=== PATIENT | female | born 1995 | race Caucasian/White ===

== ENCOUNTER → 2016-09-14 11:44 | Outpatient (CLI) | payer MEDICAID ==
[~2016-09-14 11:44] MED LIST: HYDROCODON-ACE1 EAC7 PO; IBUPROFEN100 MG/5 M; PHENERGAN25 M1 PO; PREPLUS CA-FE1 EACH PO; PROTONIX40 MG PO
[2016-09-20 05:37] VITALS: BMI 31.7
== END | disposition home or self-care (01) ==
LOC: D.LDO 11:44
DX: Z34.03 Encounter for supervision of normal first pregnancy, third trimester (principal); Z3A.39 39 weeks gestation of pregnancy; R03.0 Elevated blood-pressure reading, without diagnosis of hypertension

== ENCOUNTER → 2016-09-17 13:25 | Outpatient (CLI) | payer MEDICAID ==
[2016-09-20 05:37] VITALS: BMI 31.7
== END | disposition home or self-care (01) ==
LOC: D.LDO 13:25
DX: O36.8130 Decreased fetal movements, third trimester, not applicable or unspecified (principal); Z3A.40 40 weeks gestation of pregnancy

== ENCOUNTER 2016-09-20 05:08 | Inpatient (IN) | payer MEDICAID ==
[~2016-09-20] VITALS: Ht 152.4 cm; Wt 73.5 kg
[2016-09-20] VITALS (10 sets, daily range): BP systolic 121–160; BP diastolic 65–89; Ht 152.4 cm; Wt 73.5 kg
[2016-09-20] MEDS ORDERED: PROTONIX40 MG PO (05:36)
[2016-09-20] MEDS ORDERED: PREPLUS CA-FE1 EACH PO (05:36)
[2016-09-20] MEDS ORDERED: PHENERGAN25 M1 PO (05:36)
[2016-09-20 05:45] LABS: HEMATOCRIT 30.6 % (36.0-48.0); HEMOGLOBIN 9.6 g/dL (12-16); MCH 27.3 pg (26.0-34.0); MCHC 31.4 g/dL (31.0-37.0); MCV 86.9 fL (80.0-100.0); MEAN PLATELET VOLUME 11.1 fL (7.4-10.4); RBC 3.52 10x6/uL (4.00-5.40); RDW 14.3 % (11.5-14.5); WBC 9.4 10x3/uL (4.8-10.8)
--- NOTE | 2016-09-20 16:19 | NUR ---
1613 VIABLE BABY GIRL DELIVERED CORD BLOOD AND GASES DONE AND SENT OUT, TO.
--- NOTE | 2016-09-20 17:09 | NUR ---
REC'D PT AA&O X 4 BACK FROM REC[facility]ERY POST PRIMARY FOR FAILURE TO DESCENT TO RM 1274. PT CURRENTLY REPORTS INCISIONAL PAIN THAT SHE RATES 6-7/10. PT HAS PIV TO RT FOREARM W/NS W/20 UNITS PITOCIN ADDED INFUSING VIA GRAVITY AT SLOW RATE. IV FLUID PLACED ON PUMP TO INFUSE AT 125ML/HR PER MD ORDERS. BREATH SOUNDS CL\=, ABD SOFT, NON-DISTENDED, BOWEL SOUNDS HYPOACTIVE IN ALL FOUR QUADRANTS. LOW TRANSVERSE INCISION W/SMALL TEFLA BANDAGE C/D/I. 2 SMALL DRAINAGE AREAS NOTED.FUNDUS FIRM,U/U, MIDLINE. SCANT LOCHIA NOTED. NO BLOOD CLOTS EXPRESSED W/MASSAGE. CURRENT PERIPAD CLEAN, NOT CHANGED AT THIS TIME. DUPONT CATH REMAINS IN PLACE W/APPROX 100ML URINE NOTED IN BAG.SCD WRAP REMAIN IN PLACE BILATERALLY. CONNECTED TO PUMP. PUMP PLUGGED IN AND FUNCTIONING.
--- NOTE | 2016-09-20 17:15 | NUR ---
FUNDUS FIRM,U/U, MIDLINE, SCANT RUBRA LOCHIA NOTED. CURRENT PERIPAD NOT CHANGED AT THIS TIME. ICE CAP TO INCISION. T/C/D TEACHING PROVIDED.
--- NOTE | 2016-09-20 17:23 | NUR ---
TORADOL 30MG SIVP GIVEN W/TEACHING. DILAUDID MIGRATORY GAME BIRD BIOLOGIST INITIATED AT THIS TIME PER MD ORDERS. MIGRATORY GAME BIRD BIOLOGIST BUTTON PROVIDED W/TEACHING. PT DECLINES TO PUSH MIGRATORY GAME BIRD BIOLOGIST BUTTON AT THIS TIME STATES "I DON'T WANT TO BE SLEEPY WHEN MY BABY COMES TO THE ROOM FOR ME TO FEED HER." MIGRATORY GAME BIRD BIOLOGIST BUTTON AT PT'S SIDE W/ENCOURAGEMENT TO USE IT PROVIDED. PT'S MOTHER AND FOB AT BEDSIDE. PT REQUESTING TO SEE HER FRANKIE. TEACHING PROVIDED.
--- NOTE | 2016-09-20 17:30 | NUR ---
PT AA&O X4. FUNDUS FIRM,U/U, MIDLINE. SCANT RUBRA LOCHIA NOTED. NO BLOOD CLOTS EXPRESSED W/MASSAGE. NO NEED TO CHANGE PERIPAD AT THIS TIME. PT RATES PAIN 6/10. STILL DECLINES TO PUSH AIR HOIST OPERATOR BUTTON. APPROX 100ML URINE EMPTIED FROM DUPONT BAG AT THIS TIME TO START Q 4HR I&O.
--- NOTE | 2016-09-20 18:02 | NUR ---
DR PHELAN TO BEDSIDE TO SPEAK WITH PT.
--- NOTE | 2016-09-20 18:05 | NUR ---
FUNDUS FIRM,U/U, MIDLINE, SCANT TO SMALL RUBRA LOCHIA NOTED. NO BLOOD CLOTS EXPRESSED W/MASSAGE. CLEAN PERIPAD PLACED AT THIS TIME. PT REPORTS LEGS ARE STILL NUMB AND UNABLE TO MOVE LE'S WITH FULL STRENGTH.
--- NOTE | 2016-09-20 18:10 | NUR ---
PT ENCOURAGED TO PUSH HER ROD FINISHER BUTTON TO HELP CONTROL HER PAIN SO THAT SHE WON'T HAVE ELEVATED BP'S FROM HER INCREASED PAIN. PT DOES SO AT THIS TIME.
--- NOTE | 2016-09-20 18:11 | NUR ---
INFANT TO ROOM VIA CRIB PER KILO MARTINES RN AT THIS TIME.
--- NOTE | 2016-09-20 18:45 | NUR ---
PT RINGS CALL LIGHT. THIS RN TO BEDSIDE. PT REQUESTING A BOTTLE TO FEED . PT REPORTS SHE CAN'T CALM ENOUGH TO GET HER TO NURSE. BOTTLE AND NIPPLE PROVIDED. SWADDLED X 2. HAT PLACED BACK ON . PLACED IN PT'S ARMS FOR PT TO FEED. PT DENIES FURTHER NEEDS AT THIS TIME.
--- NOTE | 2016-09-20 19:17 | NUR ---
SHIFT ASSESSMENT COMPLETED. VSS. FUNDUS FIRM, U2 WITH MODERATE AMT RUBRA LOCHIA TO PERIPAD, NO CLOTS PRESENT AT THIS TIME. PERIPAD AND CHUX CHANGED. BOWEL SOUNDS PRESENT AND ACTIVE IN ALL 4 QUADRANTS. DRSG CLEAN, DRY, AND INTACT WITH 2 SMALL AREAS OF DRIED DRAINAGE MARKED. INSTRUCTED PATIENT AND S/O ON S/S OF INFECTION/COMPLICATIONS TO INCISION SITE TO REPORT INCLUDING REDNESS, INCREASED PAIN, DRAINAGE, ODOR, FEVER WITH UNDERSTANDING VERBALIZED. INSTRUCTED ON USE OF INCENTIVE SPIROMETER WITH RETURN DEMONSTRATION X10 AND ALTERNATE PAIN MGMT TECHNIQUES. PATIENT VERBALIZED FEAR OF USING PRODUCTION CONTROL SPECIALIST STATING THAT SHE WAS AFRAID THAT SHE WOULD "GET ADDICTED" TO PAIN MED, EXPLAINED THAT SHE WILL ONLY HAVE PRODUCTION CONTROL SPECIALIST FOR SHORT TIME AND CHANCES OF BECOMING ADDICTED TO PAIN MEDICATION WHEN USED FOR SHORT PERIOD OF TIME IS MINIMAL AND WHEN PAIN IS MANAGED APPROPRIATELY HEALING PROCESS TENDS TO HAPPEN MORE EFFECTIVELY AND QUICKLY, PT VERBALIZED UNDERSTANDING AND STATES THAT DID HIT HER BUTTON PRIOR TO RN ENTERING ROOM AND PAIN DECREASED FROM 7/10 TO CURRENTLY 5/10, HOWEVER INCREASED TO 6/10 WITH FUNDAL CHECK. PT REQUESTED JELLO AND LEMON [place] [employer], GIVEN PER REQUEST AND ORDER. ICE CHIPS AND WATER ALSO PROVIDED. BED IN LOW POSITION, CL/PHONE WITHIN REACH. UPPER SIDE RAILS RAISED X2.
--- NOTE | 2016-09-20 19:19 | NUR ---
325 MLS CLEAR LIGHT YELLOW URINE EMPTIED FROM UROMETER.
--- NOTE | 2016-09-20 20:18 | NUR ---
NICOTINE PATCH APPLIED TO RIGHT SHOULDER PER ORDER. PT REQUEST THAT BE TAKEN TO NBN D/T HER FEELING DROWSY FROM PAIN MEDICATION BUT WANTS BACK FOR 2229 FEEDING, INFANT TAKEN TO NBN PER REQUEST AND NBN RN NOTIFIED OF PT REQUEST. VSS, FUNDUS REMAINS FIRM, U2 WITH SMALL AMT RUBRA LOCHIA TO PERIPAD, NO CLOTS.
--- NOTE | 2016-09-20 21:05 | NUR ---
THIS RN TO MOTHER'S ROOM FOR SUPPORT. LATCHED FOR A FEW SECONDS THEN LET GO. MOM WANTS TO GIVE FORMULA, ENCOURAGED TO TRY A NIPPLE SHIELD BEFORE GIVING FORMULA DUE TO FLAT NIPPLES. MOM AGREED, NIPPLE SHIELD PROVIDED. PLACED SKIN TO SKIN ON MOTHER'S CHEST FOR CONSOLING. MOM STATED SHE WOULD TRY AGAIN WHEN SHE CALMS THE BABY. VASQUEZ VANEGAS
--- NOTE | 2016-09-20 21:05 | NUR ---
NBN RN WITH PT ASSISTING WITH . PT DENIES NEEDS AT THIS TIME.
--- NOTE | 2016-09-20 21:36 | NUR ---
PT BONDING WITH INFANT WITH SKIN TO SKIN CONTACT. PT REQUESTS RN CHECK BACK AND DO V/S WHEN SHE IS FINISHED BONDING WITH INFANT AND ATTEMPTING TO BREASTFEED. INSTRUCTED PT TO CALL USING CL, VERBALIZED APPRECIATION AND UNDERSTANDING.
--- NOTE | 2016-09-20 22:02 | NUR ---
PT C/O OF NAUSEA, REQUESTS MEDICATION IF ORDERED. PRN ZOFRAN GIVEN SLOW IVP PER ORDERS.
--- NOTE | 2016-09-20 22:06 | NUR ---
PT CALLED VIA CL. REPORTS THAT FOB IS GOING TO GIVE BOTTLE AT THIS TIME. VSS. FUNDUS REMAINS FIRM, U2 WITH MODERATE AMT RUBRA LOCHIA TO PERIPAD, NO CLOTS PRESENT. PT DEMONSTRATED USE OF INCENTIVE SPIROMETER X10, WITH STRONG COUGH EFFORT. REINFORCED TEACHING ON SPLINTING TO PT WITH RETURN DEMONSTRATION. PERINUM CLEANSED, CHUX AND PERIPAD CHANGED. GOWN AND LINENS ALSO CHANGED. PT POSITIONED TO RIGHT SIDE WITH PILLOW PLACED BETWEEN KNEES AND BEHIND BACK FOR COMFORT AND SUPPORT. 150 MLS CLEAR LIGHT YELLOW URINE EMPTIED FROM UROMETER. DENIES ADDITIONAL NEEDS AT THIS TIME. S/O REMAINS AT BEDSIDE, SUPPORTIVE OF PT AT THIS TIME. BED PLACED BACK IN LOW POSITION WITH UPPER SIDE RAILS RAISED X2, CL/PHONE WITHIN REACH. PAIN 4/10 AT THIS TIME.
--- NOTE | 2016-09-20 23:30 | NUR ---
PAIN 7/10, PT REQUESTED BOLUS OF BUILDING REPAIR MAINTENANCE SUPERVISOR BE GIVEN. 0.4 MG BOLUS GIVEN PER ORDER. V/S REMAIN STABLE. FUNDUS FIRM U2, SMALL AMT RUBRA LOCHIA TO PERIPAD, NO CLOTS. PT REPOSITIONED TO BACK. INCENTIVE SPIROMETER DONE X10, COUGH AND DEEP BREATHING DONE WITH GOOD EFFORT. DRSG REMAINS CLEAN, DRY, AND INTACT. NO NEW DRAINAGE TO DRSG. S/O REMAINS AT BEDSIDE. BED IN LOW POSITION, CL/PHONE WITHIN REACH.
[2016-09-21] VITALS (12 sets, daily range): BP systolic 113–170; BP diastolic 63–91
--- NOTE | 2016-09-21 00:01 | NUR ---
PAIN REASSESSMENT COMPLETED. PT SLEEPING AT THIS TIME. RESPIRATIONS REGULAR, NO S/S OF DISTRESS NOTED.
--- NOTE | 2016-09-21 01:34 | NUR ---
ROUNDS MADE. PT REPORTS THAT PAIN IS CURRENTLY 4/10, "MAINLY JUST MY STOMACH CRAMPING." TORADOL GIVEN PER ORDERS. PT STATES THAT IT HELPED TREMENDOUSLY WITH HER PAIN EARILER WHEN GIVEN. 475 MLS CLEAR LIGHT YELLOW URINE EMPTIED FROM UROMETER. PT POSITIONED SELF FROM RIGHT SIDE TO BACK, PERFORMED INCENTIVE SPIROMETER X10. COUGHING AND DEEP BREATHING DONE WITH GOOD EFFORT. DARLENE PAD CHANGED WITH SMALL AMT RUBRA LOCHIA, NO CLOTS. ICE WATER AND ICE CHIPS GIVEN PER REQUEST. S/O SLEEPING AT THIS TIME. DENIES ADDITIONAL NEEDS.
--- NOTE | 2016-09-21 02:02 | NUR ---
PAIN REASSESSMENT COMPLETED. PT SLEEPING AT THIS TIME. RESPIRATIONS REGULAR, NO S/S OF DISTRESS NOTED.
--- NOTE | 2016-09-21 03:36 | NUR ---
ROUNDS MADE. 150 MLS CLEAR LIGHT YELLOW URINE EMPTIED FROM DUPONT. PAIN 1-2/10, INTERMITTENT ABD CRAMPING. PT POSITIONED TO LEFT SIDE. INCENTIVE SPIROMETER DONE X10. COUGH AND DEEP BREATHING DONE WITH GOOD EFFORT. DENIES ADDITIONAL NEEDS AT THIS TIME. REQUESTS THAT INFANT BE BROUGHT BACK TO ROOM DURING NEXT ROUNDS. BED IN LOW POSITION. CL/PHONE WITHIN REACH.
--- NOTE | 2016-09-21 05:18 | NUR ---
VSS. FUNDUS REMAINS FIRM, U2 WITH MODERATE AMT RUBRA LOCHIA. 1 DIME SIZED CLOTS NOTED TO PERIPAD. PERINUM CLEANSED, PERIPAD CHANGED. PAIN 5/10 AT THIS TIME. AXMINSTER WEAVER BUTTON USED BY PT. 450 MLS CLEAR LIGHT YELLOW URINE EMPTIED FROM DUPONT. PT POSITIONED SELF UP IN BED WITH HOB ELEVATED TO 45 DEGREES. ICE WATER GIVEN, REQUESTS INFANT BE BROUGHT TO ROOM. S/O REMAINS IN ROOM SLEEPING AT THIS TIME. PT ALSO REPORTS THAT SHE IS NOW PASSING FLATUS.
[2016-09-21 05:22] LABS: BASOPHILS 0.2 % (0.0-2.0); EOSINOPHILS 0.8 % (0-7); HEMATOCRIT 26.9 % (36.0-48.0); HEMOGLOBIN 8.6 g/dL (12-16); IMMATURE GRANULOCYTES 1.3 % (0-5); LYMPHOCYTES 15.1 % (15-50); MCH 27.7 pg (26.0-34.0); MCV 86.8 fL (80.0-100.0); MEAN PLATELET VOLUME 10.7 fL (7.4-10.4); MONOCYTES 6.5 % (2-11); NEUTROPHILS 76.1 % (40-80); PLATELET COUNT 167 10x3/uL (130-400); RDW 14.2 % (11.5-14.5); WBC 10.4 10x3/uL (4.8-10.8)
--- NOTE | 2016-09-21 05:35 | NUR ---
INFANT TO ROOM FROM NBN. PT BONDING WITH INFANT UPON RN LEAVING ROOM.
--- NOTE | 2016-09-21 06:26 | NUR ---
PT SITTING UP IN BED, BOTTLE FEEDING INFANT AT THIS TIME. DENIES NEEDS AT THIS TIME. PAIN 12/06. S/O REMAINS AT BEDSIDE SLEEPING. BED IN LOW POSITION. CL/PHONE WITHIN REACH. UPPER SIDE RAILS RAISED X2.
--- NOTE | 2016-09-21 07:11 | NUR ---
THIS RN TO BEDSIDE FOR SHIFT ASSESSMENT. PT AA&O X 4 SITTING UP IN BED. RATES INCISIONAL PAIN 3/10. PT HAS PIV TO RT FOREARM W/NS W/20 UNITS PITOCIN INFUSING AT 125ML/HR. APPROX 50ML REMAINING IN BAG. RATE SLOWED TO 25ML/HR. DILUADID CHIEF SERVICE DISPATCHER IN PLACE. PT HAS CHIEF SERVICE DISPATCHER BUTTON AT HER SIDE. BREATH SOUNDS CL/=, ABD SLIGHTLY DISTENDED, BUT SOFT. PT REPORTS HAVING PASSED GAS. LOW TRANSVERSE INCISION W/TEFLA DRESSING C/D/I. FUNDUS FIRM,U/U, MIDLINE. SCANT TO SMALL RUBRA LOCHIA NOTED. SCD WRAPS BILATERALLY TO LE'S. CONNECTED TO PUMP. PUMP IS ON AND FUNCTIONING. PT HAS DUPONT CATH IN PLACE, DRAINING VIA GRAVITY AT BEDSIDE. V/S STABLE. PT DENIES NEEDS AT PRESENT. PP TREAT BOX SERVED. BED LOW, SIDE RAILS UP X 2. CALL LIGHT AND PHONE AT PT'S SIDE.
--- NOTE | 2016-09-21 07:25 | NUR ---
REGULAR BREAKFAST TRAY SERVED AT THIS TIME.
--- NOTE | 2016-09-21 08:17 | NUR ---
THIS RN TO ROOM WITH MOTRIN 600MG AND NORCO 10/325MG ONE TAB TO MEDICATE PT AND D/C DUPONT AND REHAB OFFICE COORDINATOR. PT AND SIG OTHER CURRENTLY SLEEPING. BOTH LEFT UNDISTURBED AND MEDS RETURNED TO [facility].
--- NOTE | 2016-09-21 09:00 | NUR ---
ROUNDS MADE. PT LYING LOW CASIANO'S W/EYES CLOSED. RESP EVEN. NO DISTRESS NOTED. PT LEFT UNDISTURBED TO ALLOW FOR REST.
--- NOTE | 2016-09-21 09:38 | NUR ---
ROUNDS MADE. PT CURRENTLY NURSING INFANT. PT ASKED TO RING CALL LIGHT ONCE SHE HAS FINISHED NURSING SO THIS RN MAY RETURN AND D/C HER DUPONT, SALINE LOCK IV AND ADMIN PAIN MEDICATION. PT IS AGREEABLE.
--- NOTE | 2016-09-21 10:10 | NUR ---
THIS RN BEDSIDE. PT AA&O X 4 SITTING UP IN BED W/ ON CHEST. PT CURRENTLTY RATES PAIN 03/07. DILAUDID OR SCRUB TECH DISCONTINED.IV SALINE LOCKED. CURRENT PERIPAD W/SMALL RUBRA LOCHIA NOTED. CLEAN PERIPAD PLACED. DUPONT CATH DISCONTINUED INTACT. 1000ML URINE EMPTIED FROM DUPONT. SCD WRAPS REMAIN IN PLACE BILATERALLY. STILL CONNECTED TO PUMP. PUMP IS ON AND FUNCTIONING. PT REQUEST TO WAIT TO SHOWER UNTIL SENIOR JAVA WEB DEVELOPER HAS ROUNDED. BATHING ITEMS PROVIDED.
--- NOTE | 2016-09-21 10:52 | NUR ---
Racheal HELMS@ 9:24 S: Patient states baby has been fussy, capo hard to . O: Patient lying semi reclined in bed holding infant, states she was just about to give her a bottle because she won't latch. Offered to assist with latching. Patient is using a nipple shield, showed to correctly use. Had patient apply nipple shield on left breast, patient is aware of how to use correctly. Explain how to latch , turn tummy to tummy, nose opposite of nipple, directly in front of breast, allow to self latch. Assisted with latching . Baby latched on breast, mouth 140 degrees, round cheeks, sucking in a rocker motion. Infant latched on left breast from 9:26-9:39, 9:45-9:50, right breast at 9:55-10:00. Patient and infant show no signs of discomfort. takes time and patience in the beginning. Explain breast milk composition, supply and demand, and feeding cues. Placing to the breast for every feeding with help with establishing her milk supply. If she needs help with latching please ask. Offered to make [facility] appointment, provided [facility] appointment date and time. Provided handout and explain, on starting a feeding, positions for , hand expression, and benefits of skin to skin. Asked if any questions, concerns, or needed, all declined. Will follow up. A: first time parent, needs assistance with . P: Continue to support during hospital visit. Cricket Schneider, CLC
--- NOTE | 2016-09-21 11:30 | NUR ---
ROUNDS MADE. PT JAXL HAS NOT SEEN SCRAP METAL BURNER AND REQUEST TO WAIT TO SHOWER. PT ATTEMPTING TO NURSE AGAIN AT THIS TIME. NO FURTHER NEEDS AT THIS TIME.
--- NOTE | 2016-09-21 12:13 | NUR ---
THIS RN TO BEDSIDE TO ASSIST PT UP TO SHOWER. PT CURRENTLY EATING LUNCH. PT ASKED TO RING CALL LIGHT ONCE SHE HAS FINISHED SO THIS RN MAY RETURN TO ASSIST HER. PT IS AGREEABLE.
--- NOTE | 2016-09-21 12:30 | NUR ---
PT RINGS CALL LIGHT. THIS RN TO ROOM. PT OOB W/OUT ASSISTANCE. AMBULATES TO BR W/OUT DIFFICULTY. PT VOIDS APPROX 100ML. THEN TO SHOWER. TEACHING PROVIDED INR REGARDS TO LETTING THE WARM WATER RUN OVER ABD DRESSING AND DUPONT STABILIZATION PLATE AND THE REMOVE BOTH. THIS RN REMAINS IN ROOM W/PT WHILE SHE SHOWERS. PT BED CHANGED OUT. PT OUT OF THE SHOWER. CLEAN GOWN,PANTIES AND PAD PROVIDED. PT RETURNS TO BED. DENIES OFFERS TO BRING HER ANYTHING TO DRINK AT THIS TIME. JUST REQUEST ICE. [facility] WITH ICE AND SERVED. DENIES FURTHER NEEDS AT THIS TIME.
--- NOTE | 2016-09-21 13:18 | NUR ---
THIS RN TO BEDSIDE TO OBTAIN V/S. PT CURRENTLY SITTING UP IN BED. PEARL DIGGER IN ROOM ATTEMPTING TO PHOTOGRAPH . PT'S PAIN AND NEEDS ASSESSED. PT REPORTS INCISIONAL PAIN OF 7/10. NORCO 10/325MG ONE TAB GIVEN. PT DENIES FURTHER NEEDS AT THIS TIME.
--- NOTE | 2016-09-21 14:00 | NUR ---
ROUNDS MADE FOR PAIN REASSESSMENT AND PT NEEDS. PT CURRENTLY SITTING UP IN BED VISITNG W/GUESTS. PAIN REASSESSED AT 11/05. PT DECLINES OFFERS TO BRING HER ANYTHING TO DRINK OR EAT AT THIS TIME.
--- NOTE | 2016-09-21 14:30 | NUR ---
SPOKE WITH KELSI CASILLAS IN REGARDS TO JOCELIN AND PRESTON NOT SCANNING IN PT'S ROOM OR ON THE COMPUTER ON WHEELS W/THE STACK Media SCANNER.
--- NOTE | 2016-09-21 14:38 | NUR ---
PT AND SIG OTHER AMBULATORY TO [email or web address]. REMINDED THAT SHE MAY NOT LEAVE THE FIRST FLOOR. PT IS AGREEABLE.
--- NOTE | 2016-09-21 14:48 | NUR ---
PT AND SIG OTHER RETURN AMBULATORY TO PT'S ROOM. NO NEEDS VOICED AT THIS TIME.
[2016-09-21 15:24] LABS: BASOPHILS 0.2 % (0.0-2.0); EOSINOPHILS 1.3 % (0-7); HEMATOCRIT 24.5 % (36.0-48.0); HEMOGLOBIN 7.8 g/dL (12-16); IMMATURE GRANULOCYTES 1.2 % (0-5); LYMPHOCYTES 20.5 % (15-50); MCH 27.8 pg (26.0-34.0); MCHC 31.8 g/dL (31.0-37.0); MCV 87.2 fL (80.0-100.0); MEAN PLATELET VOLUME 10.3 fL (7.4-10.4); MONOCYTES 6.1 % (2-11); NEUTROPHILS 70.7 % (40-80); PLATELET COUNT 192 10x3/uL (130-400); RBC 2.81 10x6/uL (4.00-5.40); RDW 14.2 % (11.5-14.5); WBC 9.6 10x3/uL (4.8-10.8)
--- NOTE | 2016-09-21 15:43 | NUR ---
ROUNDS MADE. PT SITTING UP IN BED W/INFANT ON CHEST.PT IS VISITNG W/MULTIPLE GUESTS IN ROOM. PT REPORTS PAIN 11/05. DENIES NEEDING FURTHER PAIN INTERVENTIONS AT THIS TIME. DECLINES OFFER TO BRING HER ANYTHING TO EAT OR DRINK AT THIS TIME.
--- NOTE | 2016-09-21 16:07 | NUR ---
PT STEPS OUTSIDE HER DOOR TO NOTIFY ME THAT SHE HAS VOIDED AGAIN. THIS RN TO ROOM. PT HAS VOIDED 1000ML URINE IN NUNS CAP. PT'S PAIN AND NEEDS ASSESSED. PT REPORTS INCREASED ABD PAIN. MOTRIN OFFERED. PT DECLINES. PT REQUEST HOT CHOCOLATE TO DRINK. HOT CHOCOLATE SERVED. NO FURTHER NEEDS VOICED AT THIS TIME.
--- NOTE | 2016-09-21 16:16 | NUR ---
RESULTS OF CBC TO DR MELTON - NO NEW ORDERS.
--- NOTE | 2016-09-21 17:30 | NUR ---
THIS RN TO PT'S ROOM. PT JUST RETURNING FROM WAITING ROOM TO SHOW VISITORS TO HER ROOM. PT'S PAIN ASSESSED. PT REPORTS INCISIONAL PAIN 7/10 AFTER AMBULATING. PAIN MEDICATION OFFERED. PT ACCEPTS. NORCO10/325MG ONE TAB GIVEN. SEE EMAR.
--- NOTE | 2016-09-21 19:00 | NUR ---
REPORT GIVEN TO Amanda CRISOSTOMORN
--- NOTE | 2016-09-21 19:15 | NUR ---
THIS RN TO BEDSIDE TO OBTAIN AMOUNT OF LAST VOID. PT VOIDED APPROX 600ML URINE IN NUNS CAP. WHILE AT BEDSIDE, PT NOW C/O FEELING DIZZY AND SEEING SPOTS WHEN SHE GETS UP. PT TEACHING PROVIDED IN REGARDS TO NOT AMBULATING IN ROOM W/OUT SOMEONE AT HER SIDE. PT INFORMED THAT REPORT OF HER C/O WILL BE GIVEN TO DR GREEN AND IT IS LIKELY THAT SHE MAY HAVE TO RECEIVE BLOOD. PT VERBALIZES UNDERSTANDING AND IS AGREEABLE.
--- NOTE | 2016-09-21 19:24 | NUR ---
REPORT GIVEN TO James BURNS RN CHARGE NURSE.
--- NOTE | 2016-09-21 19:25 | NUR ---
INTRODUCED SELF. PATIENT TRANSFERRED TO ROOM 1219. AMBULATORY. ORIENTED TO ROOM AND BED CONTROLS. ASSESSMENT DONE. STATUS POST PRIMARY C/S FOR FAILURE TO DESCEND--DAY 1. . LOW TRANSVERSE ABD INCISION WITH HAYDE INTACT. SALINE LOCK TO R FA. MARLON KOCH LIGHT, VOIDING WELL PER PATIENT. USING BREAST PUMP. IN THE ROOM IN OPEN CRIB. FOB HERE.
--- NOTE | 2016-09-21 21:45 | NUR ---
FIRST UNIT OF PRBC STARTED. UNIT CHECKED WITH ROMINA BADILLO. V/S SIGNS CHECKED AND MONITORED EVERY 15min X4. NO ADVERSE REACTION NOTED.
--- NOTE | 2016-09-21 22:53 | NUR ---
PAIN LEVEL "9"/10 FROM ABD INCISION. NORCO 10/325 1tab PO GIVEN FOR PAIN MANGAMENT. REFILLED ICE BAG TO INCISION PER PT's REQUEST.
--- NOTE | 2016-09-21 23:59 | NUR ---
NICOTINE PATCH 7mg TO L ARM.
[2016-09-22] VITALS (11 sets, daily range): BP systolic 112–152; BP diastolic 68–95
--- NOTE | 2016-09-22 00:45 | NUR ---
1ST UNIT OF PRBC INFUSED. IV SITE LEAKING. WILL RESITE.
--- NOTE | 2016-09-22 01:07 | NUR ---
RN TO PT BS. 20G IV PLACED TIMES 1 STICK BY RN, GOOD BLOOD RETURN NOTED. FLUSHED WITHOUT DIFFICULTY.
--- NOTE | 2016-09-22 01:30 | NUR ---
SECOND UNIT OF PRBC STARTED AND CHECKED WITH ROMINA DIALLO. V/S MONITORED EVERY 15min X4; 30min X2. BACK IN THE NURSERY.
--- NOTE | 2016-09-22 03:35 | NUR ---
SECOND UNIT OF PRBC INFUSED. NO ADVERSE REACTION NOTED. EYES CLOSED. LEFT UNDISTURBED.
--- NOTE | 2016-09-22 05:10 | NUR ---
NURSERY NURSE BROUGHT BABY TO MOM's ROOM. IV SALINE LOCK'd.
--- NOTE | 2016-09-22 05:49 | NUR ---
DRY CLEANING SUPERVISOR HERE TO DRAW AM LAB.
[2016-09-22 06:15] LABS: MCH 27.6 pg (26.0-34.0); MCHC 31.3 g/dL (31.0-37.0); MEAN PLATELET VOLUME 10.6 fL (7.4-10.4); RDW 14.2 % (11.5-14.5); WBC 10.7 10x3/uL (4.8-10.8)
[2016-09-22 06:16] LABS: RAPID PLASMA REAGIN Non Reactive (Non Reactive)
[2016-09-22 06:20] LABS: HEMOGLOBIN 9.4 g/dL (12-16); RBC 3.41 10x6/uL (4.00-5.40)
--- NOTE | 2016-09-22 07:20 | NUR ---
PT WAS RECEIVED THIS AM SITTING UP IN BED FEEDING HER BABY HER BOTTLE. SHE STATES THAT HER PAIN IS ABOUT A 3 AND IS DOING OK. VSS. GEN- AWAKE AND ALERT. LUNGS- CLEAR. HEART- RRR. ABD- SOFT, WITH TENDERNESS BS+. EXT- NO EDEMA. SALINE LOCK NOTED LEFT FOREARM. INTACT AND PATENT. PT HAS BEEN VOIDING WITHOUT DIFFICULTY. SHE HAS BEEN AMBUALTING IN ROOM. FOB AT BEDSIDE. BED IS LOW, CALL LIGHT IN REACH AND SIDE RAILS UP X 2.
--- NOTE | 2016-09-22 10:26 | NUR ---
PT IS SLEEPING. FOB SLEEPING AT BEDSIDE ALSO.
--- NOTE | 2016-09-22 10:42 | NUR ---
PT IS UP AMBULATING IN HALLWAY WITH FOB.
[2016-09-22] MEDS ORDERED: IBUPROFEN100 MG/5 M (13:31)
[2016-09-22] MEDS ORDERED: HYDROCODON-ACE1 EAC7 PO (13:32)
--- NOTE | 2016-09-22 14:15 | NUR ---
PT WAS GIVEN HER RHOGAM INJECTION LEFT BUTTOCK.
--- NOTE | 2016-09-22 14:57 | NUR ---
PT IS GETTING THINGS TOGETHER TO GO HOME. SHE OFFERS NO COMPLAINTS.
--- NOTE | 2016-09-22 15:54 | NUR ---
PT SITTING UP IN CHAIR WITH FOB AT BEDSIDE. DENIES NEEDS AT THIS TIME.
--- NOTE | 2016-09-22 16:59 | NUR ---
PT WAS DISCHARGED HOME. INSTRUCTIONS WERE DISCUSSED AND COPY WAS GIVEN. PT WAS GIVEN PRESCRIPTIONS AND FU APPT AND INSTRUCTED TO CALL US WITH ANY QUESTIONS.
--- NOTE | 2016-09-28 14:40 | OP ---
PATIENT NAME: KAREN LEVIN MEDICAL RECORD: [id number] :96 LOCATION:[facility].[id number] ADMISSION DATE:09/20/16 SURGEON: KAILASH ALEGRIA MD DATE OF OPERATION: 09/20/2016 PREOPERATIVE DIAGNOSES: 1. Term intrauterine at 40 weeks and 3 days. 2. Failed induction of labor. 3. Arrest of descent. POSTOPERATIVE DIAGNOSES: 1. Term intrauterine at 40 weeks and 3 days. 2. Failed induction of labor. 3. Arrest of descent. PROCEDURE: A primary low transverse section via Pfannenstiel skin incision. SURGEON: Kailash Alegria MD ANESTHESIA: Via epidural. ESTIMATED BLOOD LOSS: 1000 cc. INTRAVENOUS FLUIDS: Per anesthesia record. SPECIMENS: Placenta and cord for gases. COMPLICATIONS: None apparent. FINDINGS: 1. A viable female infant, Apgars 9 at 1 and 9 at 5. 2. Placenta delivered manually intact, 3-vessel cord noted. 3. Grossly normal adnexa bilaterally. PROCEDURE IN DETAIL: The patient was taken to the operating room where epidural anesthesia was achieved without difficulty. The patient was then prepped and draped in normal sterile fashion in the dorsal supine position. SCDs were on and functioning normally. A Lockwood catheter had been placed and was draining freely. At this point, a Pfannenstiel skin incision was made, extended downward to the underlying subcutaneous fat to level of the fascia, which was then excised in the midline using the scalpel and then extended bilaterally using the Simon scissors. The superior and inferior aspects of the fascial incision were then grasped with Darin clamps times 2, tented upward, and sharply dissected from the underlying rectus muscle using the Bovie cautery and the Siomn scissors. Rectus muscles were then bluntly in the midline and the Metzenbaum scissors were used to enter the peritoneum at the superior aspect of the incision. The peritoneal incision was stretched and then excised bilaterally using the Metzenbaum scissors. A bladder blade was placed into the pelvis. A low transverse incision was then made in the lower uterine segment and extended superiorly and inferiorly using the Pelosi method. At this point, the 's head was found to be extended. A Kiwi vacuum suction was attempted to be placed, but inadequate seal was unable to be achieved due to the large amount of fluid on the field. The vacuum was then used and placed on the occiput, correction to head flexion was then performed and the infant vertex was OPERATIVE REPORT [id number] KAREN LEVIN delivered easily. The vacuum was then removed immediately. The vacuum time was approximately 10 seconds with correction to head flexion without traction on the neck. No evidence of hematoma or trauma was noted on the scalp. Following deliver vertex, the shoulders were delivered followed by the body. was bulb suctioned upon delivery. The cord was clamped times 2, cut, and the was handed to the awaiting nursery team. Cord was then obtained for gases and the placenta was removed manually intact. The uterus was exteriorized and massaged for tone and cleared of all clots and debris. Uterine incision was repaired with 0 Vicryl in a running locked fashion times 2 with good hemostasis noted. A small hematoma was noted in the left aspect of the broad ligament approximately 3 x 2 cm. Several stitches of 2-0 Vicryl were then placed adjacent to it at the corner of the incision and no evidence of hematoma growth was noted moving forward. Posterior cul-de-sac was then thoroughly irrigated and uterus was returned into the pelvis. The anterior cul-de-sac was then thoroughly irrigated. Good hemostasis was noted. The small hematoma was noted to be flaccid and not expanding. Counts were correct times 2. The fascia was then repaired with 0 loop PDS times 1 and the skin repaired with jos. The patient tolerated the procedure well, transferred to postanesthesia recovery stable without incident. TRANSINT:[id number] Voice Confirmation ID: [id number] DOCUMENT ID: [id number] KAILASH ALEGRIA MD at 1437 CC: [id number] DICTATION DATE: 09/21/16 1249 VP PROJECT: 09/21/16 1307 ADM IN [facility] [address] [place] [address]
--- NOTE | 2016-10-26 11:44 | DS ---
PATIENT:KAREN LEVIN :89 MEDICAL RECORD: [id number] DISCHARGE SUMMARY ADMISSION DATE: 09/20/16 DISCHARGE DATE: 09/22/16 DATE OF ADMISSION: 09/20/2016. HOSPITAL COURSE: A 20-year-old G1 at 40 weeks and 3 days, who was admitted at that time for induction of labor per patient wishes. The patient was noted to be Rh negative, GBBS positive, rubella immune, medical history significant also for being a smoker. PAST SURGICAL HISTORY: Significant for removal of the wisdom teeth and eye surgery. ALLERGIES: The patient reported ALLERGIES TO CINNAMON AND STRAWBERRIES. MEDICATIONS: Included Protonix, vitamins and Phenergan. FAMILY HISTORY: The patient reported a family history of parent with cancer, not otherwise specified. SOCIAL HISTORY: Significant for smoking as mentioned. PHYSICAL EXAMINATION: VITAL SIGNS: On initial assessment, vital signs were found to be stable. LUNGS: Clear to auscultation. CARDIOVASCULAR: Regular rate and rhythm. ABDOMEN: The abdomen was normal in size and the fundal height was appropriate. EXTREMITIES: Lower extremities were free of Homans sign, erythema or swelling. LABORATORY DATA: Initial hemoglobin was found to be 9.6 with a platelet count of 202. INITIAL ASSESSMENT AND PLAN: Term intrauterine of 40 weeks and 3 days. Plan for induction of labor per patient wishes positive, group B strep, positive for smoking, anemia and Rh negative. At that time, Pitocin was begun. The patient voiced concerned about having a long labor and was inquiring at admission about the ability to proceed with . I recommended the patient to give a trial of labor and to reassess after several hours, the patient agreed. Pitocin and penicillin was begun and after Pitocin was on for approximately 7 hours, the patient had not experienced any cervical change and the vertex was found to still be ballottable. The patient at that time desired . The risks and benefits of versus proceeding with labor were explained carefully to the patient and the patient voiced understanding and consent. section was performed. Operative report is as dictated. The patient did well overnight on postop day #0, tolerating clear liquid diet, IV Dilaudid [place], IV Toradol, IV fluids. Lockwood catheter was in place and urine output was found to be adequate. SCDs were on and functioning normally throughout the night. On the morning of postop day #1, the patient was doing well. Vital signs were stable. The patient was afebrile. Hemoglobin was appropriate at 8.6. Incision was clean, dry and intact. Uterus was infraumbilical and appropriately tender. The patient at that time was advanced to general diet, p.o. pain meds and ambulation was begun. Overnight on postop day #1, the patient reported some symptomatic dizziness upon standing and was transfused packed red blood cells overnight by the on-call physician. The DISCHARGE SUMMARY REPORT [id number] KAREN LEVIN patient now asymptomatic on the morning of postop day #2, vital signs were stable. The patient was afebrile. The patient was discharged home with instructions to follow up for staple removal. TRANSINT:[id number] Voice Confirmation ID: [id number] DOCUMENT ID: [id number] VERONICA MELTON MD at 1142 CC: [id number] DICTATION DATE: 10/16/16 0650 PASSPORT APPLICATION EXAMINER: 10/16/16 2007 DIS IN 09/22/16 [facility] [address] [place] [address]
== END 2016-09-22 17:01 | disposition home or self-care (01) | DRG 766 ==
LOC: D.LD 05:08 → D.WS 09-21 19:48
PROVIDERS: Obstetrics & Gynecology; ADMIT Obstetrics & Gynecology
PROC: 10D00Z1 Extraction of Products of Conception, Low, Open Approach (ICD-10-PCS; principal; 2016-09-20 15:00)
DX: O99.824 Streptococcus B carrier state complicating childbirth (principal); Z3A.40 40 weeks gestation of pregnancy; Z37.0 Single live birth; O61.0 Failed medical induction of labor; O26.893 Other specified pregnancy related conditions, third trimester; Z67.91 Unspecified blood type, Rh negative; O99.02 Anemia complicating childbirth; O99.334 Smoking (tobacco) complicating childbirth

== ENCOUNTER 2017-05-20 10:17 | Emergency (ER) | payer MEDICAID ==
[2016-09-20 05:37] VITALS: BMI 31.7
== END 2017-05-20 15:50 | disposition home or self-care (01) ==
LOC: D.ER 10:17
DX: O23.41 Unspecified infection of urinary tract in pregnancy, first trimester (principal); Z3A.00 Weeks of gestation of pregnancy not specified; R53.1 Weakness; R55 Syncope and collapse

== ENCOUNTER 2018-10-09 16:13 | Outpatient (CLI) | payer MEDICAID ==
[2016-09-20 05:37] VITALS: BMI 31.7
== END 2018-10-09 19:16 | disposition home or self-care (01) ==
LOC: D.LDO 16:13
DX: O26.893 Other specified pregnancy related conditions, third trimester (principal); Z3A.37 37 weeks gestation of pregnancy

== ENCOUNTER 2019-04-12 07:37 | Emergency (ER) | payer MEDICAID ==
[~2019-04-12] VITALS: Ht 152.4 cm; Wt 65.9 kg
[2019-04-12 07:57] VITALS: Ht 152.4 cm; Wt 65.9 kg
[2019-04-12 08:30] LABS: BASOPHILS 0.3 % (0-2); EOSINOPHILS 9.7 % (0-7); HEMATOCRIT 37.8 % (36.0-48.0); HEMOGLOBIN 12.7 g/dL (12-16); IMMATURE GRANULOCYTES 0.3 % (0-5); LYMPHOCYTES 35.9 % (15-50); MCH 28.3 pg (26.0-34.0); MCHC 33.6 g/dL (31.0-37.0); MCV 84.2 fL (80.0-100.0); MEAN PLATELET VOLUME 9.5 fL (7.4-10.4); NEUTROPHILS 42.8 % (40-80); PLATELET COUNT 275 10x3/uL (130-400); RBC 4.49 10x6/uL (4.00-5.40); RDW 13.9 % (11.5-14.5)
[2019-04-12 08:46] LABS: ALKALINE PHOSPHATASE 80 U/L (46-116); ALT (SGPT) 16 U/L (10-68); AMYLASE - SERUM 63 U/L (25-115); BILIRUBIN - TOTAL 0.41 mg/dL (0.2-1.3); CALC OSMOLALITY 276 mosm/kg (275-300); CALCIUM 9.3 mg/dL (8.5-10.1); CARBON DIOXIDE 25.2 mmol/L (21.0-32.0); CHLORIDE - SERUM 104 mmol/L (98-107); CREATININE - SERUM 0.6 mg/dL (0.6-1.3); GLUCOSE 95 mg/dL (74-106); LIPASE 150 U/L (73-393); POTASSIUM - SERUM 3.9 mmol/L (3.5-5.1); PROTEIN - SERUM 8.2 g/dL (6.4-8.2); SODIUM 139 mmol/L (136-145); UREA NITROGEN 10 mg/dL (7-18); eGFR NON AFRICAN AMERICAN > 90 mL/min (90-120)
[2019-04-12 08:58] LABS: APPEARANCE HAZY (CLEAR); BILIRUBIN NEGATIVE (NEGATIVE); COLOR YELLOW (YELLOW); GLUCOSE NEGATIVE (NEGATIVE); KETONE NEGATIVE (NEGATIVE); NITRITE NEGATIVE (NEGATIVE); PROTEIN NEGATIVE (NEGATIVE); SPECIFIC GRAVITY 1.025 (1.005-1.020); UROBILINOGEN NORMAL (NORMAL); WHITE CELLS - URINE 0-5 /hpf (0-5)
[2019-04-12 08:59] LABS: BACTERIA FEW /hpf (NONE SEEN); EPITHELIAL CELLS 0-5 /hpf (0-5); MUCUS <1+ /lpf (NONE SEEN)
[2019-04-12] MEDS ORDERED: ULTRAM50 MG PO (09:35)
[2019-04-12] MEDS ORDERED: SULFAMETHOXAZOL1 TA2 PO (09:35)
[2019-04-12 09:49] VITALS: BP 122/64
== END 2019-04-12 09:50 | disposition home or self-care (01) ==
LOC: D.ER 07:37
PROVIDERS: Emergency Medicine
DX: R51 Headache (principal); R10.9 Unspecified abdominal pain; N39.0 Urinary tract infection, site not specified

== ENCOUNTER 2020-04-09 23:24 | Emergency (ER) | payer MEDICAID ==
[~2020-04-09] VITALS: Ht 152.4 cm; Wt 69.5 kg
[~2020-04-09 23:24] MED LIST changes: +SULFAMETHOXAZOL1 TA2 PO; +ULTRAM50 MG PO
[2020-04-09 23:33] VITALS: BP 109/64; Ht 152.4 cm; Wt 69.5 kg
[2020-04-10 00:47] LABS: HCG URINE NEGATIVE (NEGATIVE)
[2020-04-10 00:51] LABS: BILIRUBIN NEGATIVE (NEGATIVE); GLUCOSE 100 mg/dL (NEGATIVE); KETONE NEGATIVE (NEGATIVE); NITRITE NEGATIVE (NEGATIVE); UROBILINOGEN NORMAL (NORMAL)
[2020-04-10 00:52] LABS: BACTERIA FEW /hpf (NEGATIVE); EPITHELIAL CELLS 0-5 /hpf (0-5); RED CELLS - URINE 0-5 /hpf (0-5)
[2020-04-10] MEDS ORDERED: DICLOFENAC SODI50 MG PO (01:07)
[2020-04-10] MEDS ORDERED: MACROBID100 MG PO (01:07)
== END 2020-04-10 01:25 | disposition home or self-care (01) ==
LOC: D.ER 23:24
PROVIDERS: Emergency Medicine
DX: M54.5 Low back pain (principal); N39.0 Urinary tract infection, site not specified; G89.29 Other chronic pain

== ENCOUNTER 2020-11-11 20:30 | Emergency (ER) | payer MEDICAID ==
[~2020-11-11] VITALS: Ht 152.4 cm; Wt 78.2 kg
[~2020-11-11 20:30] MED LIST changes: +DICLOFENAC SODI50 MG PO; +MACROBID100 MG PO; +PRENAVITE1 TAB PO
[2020-11-11 20:48] VITALS: BP 120/66; Ht 152.4 cm; Wt 78.2 kg
[2020-11-11] MEDS ORDERED: PEPCID AC20 MG PO (21:28)
[2020-11-11 21:34] LABS: HCG URINE NEGATIVE (NEGATIVE)
[2020-11-11 21:36] LABS: BASOPHILS 0.2 % (0-2); EOSINOPHILS 0.8 % (0-7); HEMOGLOBIN 10.2 g/dL (12-16); IMMATURE GRANULOCYTES 3.3 % (0-5); LYMPHOCYTE ABS# 2.29 10x3/uL (1.18-3.74); LYMPHOCYTES 22.6 % (15-50); MCH 27.1 pg (26.0-34.0); MCHC 31.9 g/dL (31.0-37.0); MCV 84.9 fL (80.0-100.0); MEAN PLATELET VOLUME 9.6 fL (7.4-10.4); NEUTROPHIL ABS# 6.61 10x3/uL (1.56-6.13); NEUTROPHILS 65.1 % (40-80); PLATELET COUNT 236 10x3/uL (130-400); RBC 3.77 10x6/uL (4.00-5.40); WBC 10.1 10x3/uL (4.8-10.8)
[2020-11-11 21:40] LABS: CALC OSMOLALITY 266 mosm/kg (275-300); CALCIUM 8.6 mg/dL (8.5-10.1); CARBON DIOXIDE 25.1 mmol/L (21.0-32.0); CHLORIDE - SERUM 103 mmol/L (98-107); CREATININE - SERUM 0.5 mg/dL (0.6-1.3); GLUCOSE 74 mg/dL (74-106); POTASSIUM - SERUM 3.3 mmol/L (3.5-5.1); SODIUM 135 mmol/L (136-145); UREA NITROGEN 6 mg/dL (7-18); eGFR NON AFRICAN AMERICAN > 90 mL/min (90-120)
[2020-11-11 21:41] LABS: BILIRUBIN NEGATIVE (NEGATIVE); KETONE NEGATIVE (NEGATIVE); NITRITE NEGATIVE (NEGATIVE); UROBILINOGEN NORMAL mg/dL (< 2)
[2020-11-11 21:42] LABS: BACTERIA MODERATE HPF (NONE SEEN); WHITE CELLS - URINE 0-5 HPF (0-4)
[2020-11-11 22:07] LABS: ALKALINE PHOSPHATASE 54 U/L (30-120); ALT (SGPT) 18 U/L (10-68); BILIRUBIN - TOTAL 0.16 mg/dL (0.2-1.3); HCG - QUANTITATIVE (MATERNAL) 9514 mIU/mL; PROTEIN - SERUM 7.1 g/dL (6.4-8.2)
== END 2020-11-11 21:46 | disposition home or self-care (01) ==
LOC: D.ER 20:30
PROVIDERS: Family Medicine
DX: O36.8120 Decreased fetal movements, second trimester, not applicable or unspecified (principal); Z3A.16 16 weeks gestation of pregnancy